=== PATIENT | female | born 1990 | race Caucasian/White ===

== ENCOUNTER 2017-05-02 21:07 | Emergency (ER) | payer MEDICAID ==
[~2017-05-02] VITALS: Ht 170.2 cm; Wt 59.0 kg
--- NOTE | 2017-05-02 22:06 | PHYS DOC ---
Past History Past Medical History: No Pertinent History Past Surgical History: No Surgical History Alcohol Use: None Drug Use: None Adult General HPI HPI Patient is a 27 year old F who presents with cough, shortness of breath, right side pain for the past couple days. Patient states that she's been having worsening cough and shortness of breath without fevers over the past couple days. Patient does admit to smoking. Patient states she has a right side pain does not related to eating and nothing increases or decreases the pain. Patient denies any dysuria. Patient denies any previous abdominal surgeries. Patient has no other complaints. Review of Systems Review of Systems GEN: Denies fevers, chills, sweats HEENT: Denies blurred vision, sore throat CV: Chest pain with coughing RESP: Cough with shortness of breath GI: right Abdominal pain NEURO: Denies confusion, dizziness MSK: Denies weakness, joint pain/swelling Allergies Allergies Allergies Coded Allergies Type Severity Reaction Last Updated Verified No Known Drug Allergies 04/16/16 No Physical Exam Physical Exam GEN.: No apparent distress. Alert and oriented. HEENT: Head is normocephalic, atraumatic NECK: Supple. LUNGS: Coarse breath sounds bilaterally. HEART: RRR, S1, S2 present. Peripheral pulses intact ABDOMEN: Soft, mild right-sided tenderness, no rebound tenderness, no abdominal distention, no right lower quadrant tenderness palpation. Positive bowel sounds. EXTREMITIES: Without any cyanosis. NEUROLOGIC: Normal speech, normal tone PSYCHIATRIC: Normal affect, normal mood. SKIN: No ulcerations Current Patient Data Vital Signs Laboratory Tests Test 05/02/17 22:41 05/02/17 22:56 Urine Collection Type Unknown Urine Color Yellow Urine Clarity Clear Urine pH 5.5 Urine Specific [place] >=1.030 Urine Protein Neg Urine Glucose (UA) Neg mg/dL Urine Ketones (Stick) Neg mg/dL Urine Blood Neg Urine Nitrite Neg Urine Bilirubin Neg Urine Urobilinogen Dipstick 0.2 mg/dL Urine Leukocyte Esterase Neg Urine RBC Occ /HPF Urine WBC Occ /HPF Urine Squamous Epithelial Cells Few /LPF Urine Bacteria Few /HPF Urine Mucus Slight /LPF White Blood Count 11.0 x10^3/uL Red Blood Count 4.14 x10^6/uL Hemoglobin 12.1 g/dL Hematocrit 35.0 % Mean Corpuscular Volume 85 fL Mean Corpuscular Hemoglobin 29 pg Mean Corpuscular Hemoglobin Concent 34 g/dL Red Cell Distribution Width 14.0 % Platelet Count 229 x10^3/uL Neutrophils (%) (Auto) 66 % Lymphocytes (%) (Auto) 23 % Monocytes (%) (Auto) 9 % Eosinophils (%) (Auto) 2 % Basophils (%) (Auto) 0 % Neutrophils # (Auto) 7.3 x10^3uL Lymphocytes # (Auto) 2.5 x10^3/uL Monocytes # (Auto) 1.0 x10^3/uL Eosinophils # (Auto) 0.2 x10^3/uL Basophils # (Auto) 0.0 x10^3/uL Sodium Level 140 mmol/L Potassium Level 3.1 mmol/L Chloride Level 104 mmol/L Carbon Dioxide Level 26 mmol/L Anion Gap 10 Blood Urea Nitrogen 10 mg/dL Creatinine 0.8 mg/dL Estimated GFR (Cockcroft-Gault) 86.7 BUN/Creatinine Ratio 13 Glucose Level 96 mg/dL Calcium Level 8.2 mg/dL Total Bilirubin 0.5 mg/dL Aspartate Amino Transf (AST/SGOT) 17 U/L Alanine Aminotransferase (ALT/SGPT) 18 U/L Alkaline Phosphatase 46 U/L Total Protein 6.9 g/dL Albumin 3.3 g/dL Albumin/Globulin Ratio 0.9 EKG EKG 2244: EKG shows normal sinus rhythm rate of 69 no STEMI[] Radiology/Procedures Radiology/Procedures Chest x-ray NAD[] Course & Med Decision Making Course & Med Decision Making Pertinent Labs and Imaging studies reviewed. (See chart for details) ED course: Patient was seen and examined emergency room CBC, CMP, chest x-ray, EKG were ordered 0005: Patient was reevaluated when she is feeling much better updated patient on lab results and x-ray. Explained the patient was sent home with some steroids and albuterol inhaler and recommended stop smoking. MDM: After reviewing the chart, CC/HPI/PMH, physical exam, [lab results], [ radiological results], I do not believe the patient's having a significant rust or infection warranting further workup and/or admission at this time. I do not believe the patient is having an inch abdominal emergency necessitating a CT scan at this time since her lab work is unremarkable and her abdominal pain is resolved. I believe patient is stable for discharge. We'll discharge patient home with steroids and albuterol inhaler. Additional verbal discharge instructions were provided to the patient and that if symptoms get worse or any new symptoms arise that are worrisome to the patient she is to return to the emergency room immediately [] Dragon Disclaimer Dragon Disclaimer This chart was dictated in whole or in part using Voice Recognition software in a busy, high-work load, and often noisy Emergency Department environment. It may contain unintended and wholly unrecognized errors or omissions. Departure Departure: Impression: Primary Impression: Bronchitis Disposition: 01 HOME, SELF-CARE Condition: STABLE Referrals: PCP,NO (PCP) Patient Instructions: Acute Bronchitis Additional Instructions: Please follow-up with your family physician in the next one to 2 days and return if symptoms increase and please stop smoking Scripts Albuterol Sulfate (VENTOLIN HFA INHALER) 18 Gm Hfa.aer.ad 1 PUFF IH PRN Q4HRS Y for FOR ASTHMA for 30 Days, #1 INHALER 0 Refills Prov: MARIE RIVERA DO 05/03/17 Prednisone (PREDNISONE) 50 Mg Tablet 50 MG PO DAILY for 5 Days, #5 TAB Prov: MARIE RIVERA DO 05/03/17 MARIE RIVERA DO May 02, 2017 22:06
[2017-05-02 23:20] LABS: BASO % 0 % (0-3); EOS # 0.2 x10^3/uL (0.0-0.7); EOS % 2 % (0-3); HEMOGLOBIN 12.1 g/dL (12.0-15.5); LYMPH # 2.5 x10^3/uL (1.0-4.8); LYMPH % 23 % (24-48); MEAN CORPUSCULAR HEMOGLOBIN 29 pg (25-35); MEAN CORPUSCULAR HGB CONC 34 g/dL (31-37); MEAN CORPUSCULAR VOLUME 85 fL (79-100); MONO % 9 % (0-9); NEUT # 7.3 x10^3uL (1.8-7.7); NEUT % 66 % (31-73); PLATELET COUNT 229 x10^3/uL (140-400); RED BLOOD COUNT 4.14 x10^6/uL (3.50-5.40)
[2017-05-02 23:25] LABS: BILIRUBIN,URINE NEG (NEG); CLARITY,URINE CLEAR; COLOR,URINE YELLOW; GLUCOSE,URINE NEG (NEG); NITRITE,URINE NEG (NEG); RBC,URINE OCC /HPF (0-2); UROBILINOGEN,URINE 0.2 mg/dL (0.2 mg/dL); WBC,URINE OCC /HPF (0-4)
[2017-05-02 23:26] LABS: BACTERIA,URINE FEW /HPF (0-FEW); SQUAMOUS EPITHELIAL CELL,UR FEW /LPF
[2017-05-02 23:35] LABS: ALBUMIN 3.3 g/dL (3.4-5.0); ALBUMIN/GLOBULIN RATIO 0.9 (1.0-1.7); CALCIUM 8.2 mg/dL (8.5-10.1); CREATININE 0.8 mg/dL (0.6-1.0); GFR 86.7; POTASSIUM 3.1 mmol/L (3.5-5.1); TOTAL BILIRUBIN 0.5 mg/dL (0.2-1.0); TOTAL PROTEIN 6.9 g/dL (6.4-8.2)
[2017-05-03 00:06] VITALS: BP 107/57
[2017-05-03] MEDS ORDERED: PRED50TA PO (00:08)
[2017-05-03] MEDS ORDERED: ALBU18HF IH (00:08)
--- NOTE | 2017-05-03 07:47 | RAD ---
Indication shortness of breath. Chest discomfort. Productive cough. Frontal and lateral views of the chest were obtained. Comparison is made to an examination almost 10 years earlier. The heart, pulmonary vessels and mediastinum appear normal. The lungs are clear. IMPRESSION: Normal study
--- NOTE | 2017-05-03 10:02 | EKG ---
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
== END 2017-05-03 00:15 | disposition home or self-care (01) ==
LOC: ER 21:07
DX: J40 Bronchitis, not specified as acute or chronic (principal); R10.9 Unspecified abdominal pain
CPT/HCPCS: 36415; 71020; 80053; 81001; 85025; 93005; 99285-25

== ENCOUNTER 2017-07-27 12:12 | Emergency (ER) | payer MEDICAID, OTHER ==
[~2017-07-27] VITALS: Ht 170.2 cm; Wt 61.2 kg
[~2017-07-27 12:12] MED LIST: ALBU18HF IH; PRED50TA PO
[2017-07-27] MEDS ORDERED: FLUT9.9S NS (14:16)
--- NOTE | 2017-07-27 14:16 | PHYS DOC ---
Past History Past Medical History: No Pertinent History Past Surgical History: No Surgical History Alcohol Use: None Drug Use: None Adult General Chief Complaint Chief Complaint: SORE THROAT HPI HPI Patient is a 27 year old F who presents with nasal congestion and sore throat over the past 3-4 days. Lidia denies shortness of breath. She does have occasional cough. She doesn't symptoms are worse with activity. She also is currently . She has no other associated symptoms. She has no other exacerbating or alleviating factors. Review of Systems Review of Systems Constitutional: Denies fever or chills [] Eyes: Denies change in visual acuity, redness, or eye pain [] HENT: Negative except history of present illness Respiratory: Denies cough or shortness of breath [] Cardiovascular: No additional information not addressed in HPI [] GI: Denies abdominal pain, nausea, vomiting, bloody stools or diarrhea [] : Denies dysuria or hematuria [] Musculoskeletal: Denies back pain or joint pain [] Integument: Denies rash or skin lesions [] Neurologic: Denies headache, focal weakness or sensory changes [] Endocrine: Denies polyuria or polydipsia [] All other systems were reviewed and found to be within normal limits, except as documented in this note. Family History Family History No pertinent family medical history was reported Current Medications Current Medications Current medications were reviewed Allergies Allergies Allergies Coded Allergies Type Severity Reaction Last Updated Verified No Known Drug Allergies 04/16/16 No Physical Exam Physical Exam Constitutional: Well developed, well nourished, no acute distress, non-toxic appearance. [] HENT: Normocephalic, atraumatic mild bilateral nasal mucosa erythema and edema , oral pharyngeal erythema with mild tonsillar enlargement Eyes: EOMI, conjunctiva normal, no discharge. [] Neck: Normal range of motion, no tenderness, supple, no stridor. [] Cardiovascular:Heart rate regular rhythm, Lungs & Thorax: Bilateral breath sounds clear to auscultation [] Abdomen: Bowel sounds normal, soft, gravid Skin: Warm, dry, no erythema, no rash. [] Extremities: No tenderness, no cyanosis, no clubbing, ROM intact, no edema. [] Neurologic: Alert and oriented X 3, normal motor function, normal sensory function, no focal deficits noted. [] Psychologic: Affect normal, judgement normal, mood normal. [] Current Patient Data Vital Signs Vital Signs Date Time Temp Pulse Resp B/P (MAP) Pulse Ox O2 Delivery O2 Flow Rate FiO2 07/27/17 12:33 98.3 95 16 99 Room Air Lab Results Laboratory Tests Test 07/27/17 12:40 Group A Streptococcus Rapid Negative (NEGATIVE) EKG EKG [] Radiology/Procedures Radiology/Procedures [] Course & Med Decision Making Course & Med Decision Making Pertinent Labs and Imaging studies reviewed. (See chart for details) [] Dragon Disclaimer Dragon Disclaimer This electronic medical record was generated, in whole or in part, using a voice recognition dictation system. Departure Departure: Impression: Primary Impression: Upper respiratory infection Disposition: HOME, SELF-CARE Condition: STABLE Referrals: PCP,ROMA (PCP) Patient Instructions: Upper Respiratory Infection, Adult Additional Instructions: Lidia was seen in the emergency department for nasal congestion and sore throat. No emergency medical condition was found on history or physical exam. Her symptoms are most consistent with a viral upper respiratory infection. She is encouraged use nasal saline rinses regularly and was also given a prescription for nasal steroid spray. She is advised the nasal steroids are class C in . She is advised follow-up with her primary care doctor in the next 3-5 days for further management. Scripts Fluticasone Propionate (Flonase Allergy Relief) 9.9 Ml [place].susp 1 SPRAYS NS BID for 7 Days, BOTTLE Prov: MANISH RIVERA MD 07/27/17 Problem Qualifiers Primary Impression: Upper respiratory infection URI type: unspecified URI Qualified Codes: J06.9 - Acute upper respiratory infection, unspecified MANISH RIVERA MD Jul 27, 2017 14:16
[2017-07-27 14:19] VITALS: BP 105/62
== END 2017-07-27 14:21 | disposition home or self-care (01) ==
LOC: ER 12:12
DX: O99.511 Diseases of the respiratory system complicating pregnancy, first trimester (principal); J06.9 Acute upper respiratory infection, unspecified
CPT/HCPCS: 87070; 87880; 99283

== ENCOUNTER 2018-01-29 14:48 | Emergency (ER) | payer MEDICARE, OTHER ==
[~2018-01-29] VITALS: Ht 170.2 cm; Wt 72.8 kg
[~2018-01-29 14:48] MED LIST changes: +FLUT9.9S NS
[2018-01-29] MEDS ORDERED: DEXAMETHASONE SOD PHOS 10 MG/ML VIAL IM ONE (16:30)
[2018-01-29] MEDS ORDERED: IBUPROFEN 600 MG TABLET. PO ONE (16:30)
--- NOTE | 2018-01-29 16:47 | PHYS DOC ---
Past History Past Medical History: Anemia Past Surgical History: No Surgical History Alcohol Use: Occasionally Drug Use: None Adult General Chief Complaint Chief Complaint: SORE THROAT HPI HPI Patient is a 27-year-old female who presents for evaluation of sore throat, pain with swallowing, generalized body aches which started two days ago. She denies any sick contacts. She has not noticed a fever but her temperature upon arrival is 99.9. She is alert and oriented 4, calm, and appears to be no distress. She denies headache, neck pain or neck stiffness, dysuria, back or flank pain, abdominal pain, chest pain or shortness of breath, rash, or insect/ tick bite. Review of Systems Review of Systems Constitutional: Denies fever or chills [] Eyes: Denies change in visual acuity, redness, or eye pain [] HENT: Denies nasal congestion +sore throat Respiratory: Denies cough or shortness of breath [] Cardiovascular: No additional information not addressed in HPI [] GI: Denies abdominal pain, nausea, vomiting, bloody stools or diarrhea [] : Denies dysuria or hematuria [] Musculoskeletal: Denies back pain or joint pain [] +body aches Integument: Denies rash or skin lesions [] Neurologic: Denies headache, focal weakness or sensory changes [] Endocrine: Denies polyuria or polydipsia [] All other systems were reviewed and found to be within normal limits, except as documented in this note. Current Medications Current Medications Current Medications Medications (Trade) Dose Ordered Sig/Katheryn Start Time Stop Time Status Last Admin Dose Admin Dexamethasone Sodium Phosphate (Decadron) 10 mg 1X ONCE 01/29/18 16:30 01/29/18 16:31 DC 01/29/18 16:31 10 MG Ibuprofen (Motrin) 600 mg 1X ONCE 01/29/18 16:30 01/29/18 16:31 DC 01/29/18 16:30 600 MG Allergies Allergies Allergies Coded Allergies Type Severity Reaction Last Updated Verified No Known Drug Allergies 04/16/16 No Physical Exam Physical Exam Constitutional: Well developed, well nourished, no acute distress, non-toxic appearance. [] HENT: Normocephalic, atraumatic, bilateral external ears normal, oropharynx moist, nose normal. [] moderate/severe tonsillar b/l swelling, no abscess seen, mild exudates present, +anterior cervical lymphadenopathy Eyes: PERRLA, EOMI, conjunctiva normal, no discharge. [] Neck: Normal range of motion, no tenderness, supple, no stridor. [] Cardiovascular:Heart rate regular rhythm, no murmur [] Lungs & Thorax: Bilateral breath sounds clear to auscultation [] Abdomen: Bowel sounds normal, soft, no tenderness, no masses, no pulsatile masses. [] Skin: Warm, dry, no erythema, no rash. [] Back: No tenderness, no CVA tenderness. [] Extremities: No tenderness, no cyanosis, no clubbing, ROM intact, no edema. [] Neurologic: Alert and oriented X 3, normal motor function, normal sensory function, no focal deficits noted. [] Psychologic: Affect normal, judgement normal, mood normal. [] Current Patient Data Vital Signs Vital Signs Date Time Temp Pulse Resp B/P (MAP) Pulse Ox O2 Delivery O2 Flow Rate FiO2 01/29/18 14:48 99.9 96 18 98 Room Air Lab Results Laboratory Tests Test 01/29/18 15:15 Group A Streptococcus Rapid Negative (NEGATIVE) EKG EKG [] Radiology/Procedures Radiology/Procedures [] Course & Med Decision Making Course & Med Decision Making Pertinent Labs and Imaging studies reviewed. (See chart for details) Laboratory Tests Test 01/29/18 15:15 01/29/18 16:35 Group A Streptococcus Rapid Negative Heterophil Agglutinins Negative Current Medications Medications (Trade) Dose Ordered Sig/Katheryn Route PRN Reason Start Time Stop Time Status Last Admin Dose Admin Dexamethasone Sodium Phosphate (Decadron) 10 mg 1X ONCE IM 01/29/18 16:30 01/29/18 16:31 DC 01/29/18 16:31 Ibuprofen (Motrin) 600 mg 1X ONCE PO 01/29/18 16:30 01/29/18 16:31 DC 01/29/18 16:30 @1715 - patient updated on lab results which show a negative strep and mono. The patient has significant swelling will go home with a prescription for steroids and pain medication. She is requesting antibiotics although I told the patient this is likely viral. She stable for discharge at this time. Dragon Disclaimer Dragon Disclaimer This electronic medical record was generated, in whole or in part, using a voice recognition dictation system. Departure Departure: Impression: Primary Impression: Pharyngitis Additional Impression: Sore throat Disposition: HOME, SELF-CARE Condition: STABLE Referrals: PCPROMA (PCP) Patient Instructions: Viral and Bacterial Pharyngitis Additional Instructions: Take the medication as prescribed. Follow-up with your doctor in the next 1-2 days. Return to the ER for new or worsening symptoms. Take Tylenol and ibuprofen for pain and fever relief. Scripts Tramadol Hcl (ULTRAM) 50 Mg Tablet 50 MG PO PRN Q6HRS PRN for PAIN, #15 TAB Prov: NOBLE CONNER DO 01/29/18 Prednisone (PREDNISONE) 20 Mg Tablet 2 TAB PO DAILY for 5 Days, #10 TAB Prov: NOBLE CONNER DO 01/29/18 Problem Qualifiers NOBLE CONNER DO Jan 29, 2018 16:47
[2018-01-29 17:01] LABS: MONONUCLEOSIS PATIENT NEGATIVE (NEGATIVE)
[2018-01-29] MEDS ORDERED: PRED20TA PO (17:19)
[2018-01-29] MEDS ORDERED: TRAM-48 PO (17:20)
[2018-01-29 17:35] VITALS: BP 115/66
== END 2018-01-29 17:38 | disposition home or self-care (01) ==
LOC: ER 14:48
DX: J02.9 Acute pharyngitis, unspecified (principal); Z86.2 Personal history of diseases of the blood and blood-forming organs and certain disorders involving the immune mechanism
CPT/HCPCS: 86308; 87880; 96372; 99284; J1100; 87070

== ENCOUNTER 2018-04-05 15:23 | Emergency (ER) | payer SELFPAY ==
[~2018-04-05] VITALS: Ht 170.2 cm; Wt 67.7 kg
[~2018-04-05 15:23] MED LIST changes: +PRED20TA PO; +TRAM-48 PO
[2018-04-05 16:10] LABS: BILIRUBIN,URINE NEG (NEG); CLARITY,URINE CLOUDY; COLOR,URINE YELLOW; GLUCOSE,URINE NEG (NEG)
[2018-04-05 16:11] LABS: BACTERIA,URINE MANY /HPF (0-FEW); NITRITE,URINE POS (NEG); SQUAMOUS EPITHELIAL CELL,UR OCC /LPF; UROBILINOGEN,URINE 0.2 mg/dL (0.2 mg/dL); WBC,URINE >40 /HPF (0-4)
[2018-04-05] MEDS ORDERED: cefTRIAXone IM 1 GM VIAL IM ONE (16:40)
[2018-04-05 16:55] VITALS: BP 99/61
[2018-04-05] MEDS ORDERED: CIPR250T30 PO (17:02)
[2018-04-05] MEDS ORDERED: ERYT1OIN6 RIGHTEYE (17:02)
[2018-04-05] MEDS ORDERED: PHEN100T82 PO (17:02)
--- NOTE | 2018-04-05 17:03 | PHYS DOC ---
Past History Past Medical History: No Pertinent History Past Surgical History: Tubal ligation Alcohol Use: Occasionally Drug Use: None Adult General Chief Complaint Chief Complaint: PAIN ON URINATION , EYE PROBLEM HPI HPI Patient is a 27 year old female who presents with eye problem and pain in urination. Patient complaining of right lower eyelid lesion for almost one years that getting larger and painful for the last couple days without change of vision, fever and chills, nausea and vomiting or pain. Patient denies wearing contacts or glasses. Patient also complaining of painful urination for the last couple weeks with urinary frequency. Patient denies abdominal pain, fever and chills, , nausea and vomiting, diarrhea and constipation. Patient states she had history of UTI previously. Review of Systems Review of Systems Constitutional: Denies fever or chills [] Eyes: Denies change in visual acuity, redness, or eye pain [] HENT: Denies nasal congestion or sore throat [] Respiratory: Denies cough or shortness of breath [] Cardiovascular: No additional information not addressed in HPI [] GI: Denies abdominal pain, nausea, vomiting, bloody stools or diarrhea [] : Reports dysuria and urinary frequency Musculoskeletal: Denies back pain or joint pain [] Integument: Denies rash or skin lesions [] Neurologic: Denies headache, focal weakness or sensory changes [] Endocrine: Denies polyuria or polydipsia [] All other systems were reviewed and found to be within normal limits, except as documented in this note. Current Medications Current Medications Current Medications Medications (Trade) Dose Ordered Sig/Katheryn Start Time Stop Time Status Last Admin Dose Admin Ceftriaxone Sodium (Rocephin Im) 1 gm 1X ONCE 04/05/18 16:40 04/05/18 16:41 DC 04/05/18 16:30 1 GM Allergies Allergies Allergies Coded Allergies Type Severity Reaction Last Updated Verified No Known Drug Allergies 04/16/16 No Physical Exam Physical Exam Constitutional: Well developed, well nourished, mild distress, non-toxic appearance. [] HENT: Normocephalic, atraumatic Eyes: PERRLA, EOMI, conjunctiva normal, large. In medial side of lower IUD without drainage of pus ] Neck: Normal range of motion, no tenderness, supple, no stridor. [] Cardiovascular:Heart rate regular rhythm, no murmur [] Lungs & Thorax: Bilateral breath sounds clear to auscultation [] Abdomen: Bowel sounds normal, soft, no tenderness, no masses, no pulsatile masses. [] Skin: Warm, dry, no erythema, no rash. [] Back: No tenderness, no CVA tenderness. [] Extremities: No tenderness, no cyanosis, no clubbing, ROM intact, no edema. [] Neurologic: Alert and oriented X 3, normal motor function, normal sensory function, no focal deficits noted. [] Psychologic: Affect normal, judgement normal, mood normal. [] Current Patient Data Vital Signs Vital Signs Date Time Temp Pulse Resp B/P (MAP) Pulse Ox O2 Delivery O2 Flow Rate FiO2 04/05/18 15:26 98.4 84 16 100 Room Air Lab Results Laboratory Tests Test 04/05/18 15:11 04/05/18 15:31 POC Urine HCG, Qualitative hcg negative (Negative) Urine Collection Type Clean catch Urine Color Yellow Urine Clarity Cloudy Urine pH 5.5 Urine Specific [place] 1.020 Urine Protein 100 mg/dl (NEG-TRACE) Urine Glucose (UA) Neg mg/dL (NEG) Urine Ketones (Stick) Neg mg/dL (NEG) Urine Blood Small (NEG) Urine Nitrite Pos (NEG) Urine Bilirubin Neg (NEG) Urine Urobilinogen Dipstick 0.2 mg/dL (0.2 mg/dL) Urine Leukocyte Esterase Mod (NEG) Urine RBC 1-2 /HPF (0-2) Urine WBC >40 /HPF (0-4) Urine Squamous Epithelial Cells Occ /LPF Urine Bacteria Many /HPF (0-FEW) Urine Mucus Mod /LPF EKG EKG [] Radiology/Procedures Radiology/Procedures [] Course & Med Decision Making Course & Med Decision Making Pertinent Labs reviewed. (See chart for details) discharge: I've spoken with the patient and/or caregivers. I've explained the patient's condition, diagnosis and treatment plan based on information available to me at this time. I've answered the patient's and/or caregivers questions and addressed any concerns. The patient and/or caregivers have a good understanding the patient's diagnosis, condition and treatment plan as can be expected at this point. Vital signs have been stabilized. The patient's condition is stable for discharge from the emergency department. The patient will pursue further outpatient evaluation with her primary care provider or other designated consulting physician as outlined in the discharge instructions. Patient and/or caregivers are agreeable to this plan of care and follow-up instructions have been explained in detail. The patient and/or caregivers have received these instructions in written format and expressed understanding of these discharge instructions. The patient and her caregivers are aware that if any significant change in condition or worsening of symptoms should prompt him to immediately return to this of the closest emergency department. If an emergent department is not readily available I would encourage him to call 911. [place] Disclaimer Dragon Disclaimer This electronic medical record was generated, in whole or in part, using a voice recognition dictation system. 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 1 TIFFANIE RIGHTEYE QID for 7 Days, MISC Prov: KRYSTIAN LEMUS MD 04/05/18 Problem Qualifiers KRYSTIAN LEMUS MD Apr 05, 2018 17:03
== END 2018-04-05 17:12 | disposition home or self-care (01) ==
LOC: ER 15:23
DX: N39.0 Urinary tract infection, site not specified (principal); H00.012 Hordeolum externum right lower eyelid
CPT/HCPCS: 81001; 81025; 87086; 96372; 99284; J0696

== ENCOUNTER 2018-05-31 09:52 | Emergency (ER) | payer SELFPAY ==
[~2018-05-31] VITALS: Ht 170.2 cm; Wt 59.0 kg
[~2018-05-31 09:52] MED LIST changes: +CIPR250T30 PO; +ERYT1OIN6 RIGHTEYE; +PHEN100T82 PO
[2018-05-31 10:09] VITALS: BP 104/66
--- NOTE | 2018-05-31 10:16 | PHYS DOC ---
Past History Past Medical History: No Pertinent History Past Surgical History: Tubal ligation Alcohol Use: Occasionally Drug Use: None Adult General Chief Complaint Chief Complaint: SORE THROAT HPI HPI Patient is a 28-year-old female who presents with complaint of sore throat for about a week now. Patient states throat is getting more sore over time. She denies fever. She denies any chest pain, shortness breath, nausea or vomiting. She does admit to nasal congestion and clear nasal drainage. Review of Systems Review of Systems Constitutional: Denies fever or chills [] HENT: Complains of congestion and sore throat [] Respiratory: Denies cough or shortness of breath [] Cardiovascular: No additional information not addressed in HPI [] GI: Denies abdominal pain, nausea, vomiting or diarrhea [] Allergies Allergies Allergies Coded Allergies Type Severity Reaction Last Updated Verified No Known Drug Allergies 05/31/18 No Physical Exam Physical Exam Constitutional: Well developed, well nourished, no acute distress, non-toxic appearance. [] HENT: Normocephalic, atraumatic, bilateral external ears normal, oropharynx moist, with pharyngeal erythema, no exudates, nose normal. [] Neck: Normal range of motion, no tenderness, supple, no stridor. [] Cardiovascular:Heart rate regular rhythm, no murmur [] Lungs & Thorax: Bilateral breath sounds clear to auscultation [] Current Patient Data Vital Signs Vital Signs Date Time Temp Pulse Resp B/P (MAP) Pulse Ox O2 Delivery O2 Flow Rate FiO2 05/31/18 10:09 97.7 56 18 100 EKG EKG [] Radiology/Procedures Radiology/Procedures [] Course & Med Decision Making Course & Med Decision Making Pertinent Labs and Imaging studies reviewed. (See chart for details) [] Dragon Disclaimer Dragon Disclaimer This electronic medical record was generated, in whole or in part, using a voice recognition dictation system. Departure Departure: Impression: Primary Impression: Pharyngitis Disposition: 01 HOME, SELF-CARE Condition: STABLE Referrals: PCP,NO (PCP) Patient Instructions: Viral Pharyngitis Problem Qualifiers Primary Impression: Pharyngitis Pharyngitis/tonsillitis etiology: unspecified etiology Qualified Codes: J02.9 - Acute pharyngitis, unspecified ONEIL [place] Jr. DO May 31, 2018 10:16
== END 2018-05-31 10:40 | disposition home or self-care (01) ==
LOC: ER 09:52
DX: J02.9 Acute pharyngitis, unspecified (principal)
CPT/HCPCS: 87070; 87880; 99283

== ENCOUNTER 2018-06-23 15:34 | Emergency (ER) | payer SELFPAY ==
[~2018-06-23] VITALS: Ht 170.2 cm; Wt 60.0 kg
[2018-06-23] MEDS ORDERED: IV NORMAL SALINE 1,000ML 1,000 ML IV SCH (15:58)
[2018-06-23] MEDS ORDERED: KETOROLAC 30 MG/ML VIAL. IV ONE (16:15)
[2018-06-23 16:27] LABS: BASO # 0.1 x10^3/uL (0.0-0.2); BASO % 1 % (0-3); EOS # 0.1 x10^3/uL (0.0-0.7); EOS % 1 % (0-3); HEMATOCRIT 42.8 % (36.0-47.0); HEMOGLOBIN 14.3 g/dL (12.0-15.5); LYMPH # 2.1 x10^3/uL (1.0-4.8); LYMPH % 21 % (24-48); MEAN CORPUSCULAR HEMOGLOBIN 29 pg (25-35); MEAN CORPUSCULAR HGB CONC 34 g/dL (31-37); MEAN CORPUSCULAR VOLUME 86 fL (79-100); MONO # 0.9 x10^3/uL (0.0-1.1); MONO % 9 % (0-9); NEUT # 6.9 x10^3uL (1.8-7.7); NEUT % 68 % (31-73); PLATELET COUNT 239 x10^3/uL (140-400); RED BLOOD COUNT 4.97 x10^6/uL (3.50-5.40); RED CELL DISTRIBUTION WIDTH 14.9 % (11.5-14.5)
[2018-06-23 16:39] LABS: PREG TEST PT QUAL NEGATIVE (NEG)
[2018-06-23 16:42] LABS: ALBUMIN 3.7 g/dL (3.4-5.0); ALBUMIN/GLOBULIN RATIO 0.9 (1.0-1.7); CALCIUM 8.8 mg/dL (8.5-10.1); CREATININE 0.8 mg/dL (0.6-1.0); POTASSIUM 3.7 mmol/L (3.5-5.1); TOTAL BILIRUBIN 0.6 mg/dL (0.2-1.0); TOTAL PROTEIN 7.8 g/dL (6.4-8.2)
--- NOTE | 2018-06-23 17:14 | RAD ---
Abdominal and Pelvis CT, Without Contrast: History: Sudden onset of abdominal pain Comparison: None. Procedure: Axial images are obtained of the abdomen and pelvis, without IV or oral contrast. CT Abdomen without Contrast: Findings: Evaluation of solid organs is limited without contrast. Evaluation of stomach and bowel is limited without oral contrast. There is a small amount of dense fluid around the liver and a trace amount dense fluid around the spleen and along the paracolic gutters. Liver: Normal. Spleen: Normal. Pancreas: Normal. Adrenal Glands: Normal. Kidneys: Normal. There is no free air or free fluid. There is no lymphadenopathy. Impression: Please see CT Pelvis without Contrast. End Impression. CT Pelvis without Contrast: Findings: The urinary bladder appears normal. There is a hyperattenuating hematoma between the liver and uterus that measures 6.0 x 2.8 x 9.0 cm. There is additional dense fluid posteriorly in the pelvis as well. There is a mixed density round lesion in the left adnexa likely related to the ovary that measures 3.0 cm in diameter. The appendix is not well seen but appears normal. There is no free fluid. There is no lymphadenopathy. There is no pericolonic inflammation identified. Impression: Mild hemoperitoneum in the abdomen and moderate hemoperitoneum in the pelvis which appears acute. There is a mixed density lesion in the left adnexa suggesting an ovarian lesion and a hemorrhagic ovarian masses is possible. The patient has a history of tubes tied 4 months ago and must be excluded in order to exclude a ruptured ectopic . Recommend correlation with serial vital signs and hemoglobin. End impression PQRS Compliance Statement: One or more of the following individualized dose reduction techniques were utilized for this examination: 1. Automated exposure control 2. Adjustment of the mA and/or kV according to patient size 3. Use of iterative reconstruction technique Electronically signed by: Dom Joya III, MD (06/23/2018 5:10 PM) [facility]
[2018-06-23 17:35] LABS: CLARITY,URINE CLEAR; COLOR,URINE YELLOW
[2018-06-23 17:36] LABS: BACTERIA,URINE FEW /HPF (0-FEW); BILIRUBIN,URINE NEG (NEG); GLUCOSE,URINE NEG (NEG); NITRITE,URINE NEG (NEG); RBC,URINE 0 /HPF (0-2); SQUAMOUS EPITHELIAL CELL,UR OCC /LPF; UROBILINOGEN,URINE 0.2 mg/dL (0.2 mg/dL)
--- NOTE | 2018-06-23 17:48 | PHYS DOC ---
Past History Past Medical History: No Pertinent History Past Surgical History: Tubal ligation Smoking: Cigarettes Alcohol Use: Occasionally Drug Use: None Adult General Chief Complaint Chief Complaint: ABDOMINAL PAIN HPI HPI Patient is a 28 year old female A1 with LMP of 1 month ago and history of tubal ligation about 4 months ago who presents with complaining of sharp lower abdominal pain as a sudden pain that started around 10 AM with radiation to right side of abdomen and right upper quadrant and right chest. Patient states she has hard time to complete because of the pain. Patient denies nausea, vomiting, diarrhea and constipation, urinary symptoms, vaginal bleeding, history of the same pain. Review of Systems Review of Systems Constitutional: Denies fever or chills [] Eyes: Denies change in visual acuity, redness, or eye pain [] HENT: Denies nasal congestion or sore throat [] Respiratory: Denies cough or shortness of breath [] Cardiovascular: No additional information not addressed in HPI [] GI: Reports abdominal pain, denies nausea, vomiting, bloody stools or diarrhea [ ] : Denies dysuria or hematuria [] Musculoskeletal: Denies back pain or joint pain [] Integument: Denies rash or skin lesions [] Neurologic: Denies headache, focal weakness or sensory changes [] Endocrine: Denies polyuria or polydipsia [] All other systems were reviewed and found to be within normal limits, except as documented in this note. Current Medications Current Medications Current Medications Medications (Trade) Dose Ordered Sig/Katheryn Start Time Stop Time Status Last Admin Dose Admin Ketorolac Tromethamine (Toradol 30mg Vial) 30 mg 1X ONCE 06/23/18 16:15 06/23/18 16:16 DC 06/23/18 16:25 30 MG Sodium Chloride 1,000 ml @ 1,000 mls/hr Q1H 06/23/18 15:58 06/23/18 16:57 DC 06/23/18 16:25 1,000 MLS/HR Allergies Allergies Allergies Coded Allergies Type Severity Reaction Last Updated Verified No Known Drug Allergies 05/31/18 No Physical Exam Physical Exam Constitutional: Well developed, well nourished, mild distress, non-toxic appearance. [] HENT: Normocephalic, atraumatic, oropharynx dry, no oral exudates, nose normal. [] Eyes: PERRLA, EOMI, conjunctiva normal, no discharge. [] Neck: Normal range of motion, no tenderness, supple, no stridor. [] Cardiovascular: Tachycardia, no murmur [] Lungs & Thorax: Bilateral breath sounds clear to auscultation [] Abdomen: Left lower quadrant guarding and tenderness Bowel sounds normal, soft, no masses, no pulsatile masses, vaginal exam and present of consumer advocate showed moderate vaginal discharge with left adnexal tenderness and fullness. [] Skin: Warm, dry, no erythema, no rash. [] Back: No tenderness, no CVA tenderness. [] Extremities: No tenderness, no cyanosis, no clubbing, ROM intact, no edema. [] Neurologic: Alert and oriented X 3, normal motor function, normal sensory function, no focal deficits noted. [] Psychologic: Affect normal, judgement normal, mood normal. [] Current Patient Data Vital Signs Vital Signs Date Time Temp Pulse Resp B/P (MAP) Pulse Ox O2 Delivery O2 Flow Rate FiO2 06/23/18 15:47 98.1 103 18 100 Room Air Lab Results Laboratory Tests Test 06/23/18 16:13 06/23/18 17:08 White Blood Count 10.0 x10^3/uL (4.0-11.0) Red Blood Count 4.97 x10^6/uL (3.50-5.40) Hemoglobin 14.3 g/dL (12.0-15.5) Hematocrit 42.8 % (36.0-47.0) Mean Corpuscular Volume 86 fL (79-100) Mean Corpuscular Hemoglobin 29 pg (25-35) Mean Corpuscular Hemoglobin Concent 34 g/dL (31-37) Red Cell Distribution Width 14.9 % (11.5-14.5) H Platelet Count 239 x10^3/uL (140-400) Neutrophils (%) (Auto) 68 % (31-73) Lymphocytes (%) (Auto) 21 % (24-48) L Monocytes (%) (Auto) 9 % (0-9) Eosinophils (%) (Auto) 1 % (0-3) Basophils (%) (Auto) 1 % (0-3) Neutrophils # (Auto) 6.9 x10^3uL (1.8-7.7) Lymphocytes # (Auto) 2.1 x10^3/uL (1.0-4.8) Monocytes # (Auto) 0.9 x10^3/uL (0.0-1.1) Eosinophils # (Auto) 0.1 x10^3/uL (0.0-0.7) Basophils # (Auto) 0.1 x10^3/uL (0.0-0.2) Sodium Level 143 mmol/L (136-145) Potassium Level 3.7 mmol/L (3.5-5.1) Chloride Level 104 mmol/L (98-107) Carbon Dioxide Level 24 mmol/L (21-32) Anion Gap 15 (6-14) H Blood Urea Nitrogen 10 mg/dL (7-20) Creatinine 0.8 mg/dL (0.6-1.0) Estimated GFR (Cockcroft-Gault) 86.0 BUN/Creatinine Ratio 13 (6-20) Glucose Level 69 mg/dL (70-99) L Calcium Level 8.8 mg/dL (8.5-10.1) Total Bilirubin 0.6 mg/dL (0.2-1.0) Aspartate Amino Transferase (AST) 22 U/L (15-37) Alanine Aminotransferase (ALT) 21 U/L (14-59) Alkaline Phosphatase 50 U/L (46-116) Total Protein 7.8 g/dL (6.4-8.2) Albumin 3.7 g/dL (3.4-5.0) Albumin/Globulin Ratio 0.9 (1.0-1.7) L Lipase 192 U/L (73-393) Serum Test, Qualitative Negative (NEG) Urine Collection Type Unknown Urine Color Yellow Urine Clarity Clear Urine pH 7.0 Urine Specific [place] 1.020 Urine Protein Neg (NEG-TRACE) Urine Glucose (UA) Neg mg/dL (NEG) Urine Ketones (Stick) Trace mg/dL (NEG) Urine Blood Neg (NEG) Urine Nitrite Neg (NEG) Urine Bilirubin Neg (NEG) Urine Urobilinogen Dipstick 0.2 mg/dL (0.2 mg/dL) Urine Leukocyte Esterase Neg (NEG) Urine RBC 0 /HPF (0-2) Urine WBC 1-4 /HPF (0-4) Urine Squamous Epithelial Cells Occ /LPF Urine Bacteria Few /HPF (0-FEW) Urine Mucus Mod /LPF EKG EKG [] Radiology/Procedures Radiology/Procedures [address] [address] IMAGING REPORT Signed PATIENT: SEFERINO ROSARIO ACCOUNT: [id number] : 1990 LOCATION: ER AGE: 28 SEX: F EXAM STATUS: PRE ER ORD. PHYSICIAN: KRYSTIAN LEMUS MD REASON: Sudden onset of abdominal pain. Hx: Tubes tied 4 months ago PROCEDURE: CT ABDOMEN PELVIS WO CONTRAST Abdominal and Pelvis CT, Without Contrast: History: Sudden onset of abdominal pain Comparison: None. Procedure: Axial images are obtained of the abdomen and pelvis, without IV or oral contrast. CT Abdomen without Contrast: Findings: Evaluation of solid organs is limited without contrast. Evaluation of stomach and bowel is limited without oral contrast. There is a small amount of dense fluid around the liver and a trace amount dense fluid around the spleen and along the paracolic gutters. Liver: Normal. Spleen: Normal. Pancreas: Normal. Adrenal Glands: Normal. Kidneys: Normal. There is no free air or free fluid. There is no lymphadenopathy. Impression: Please see CT Pelvis without Contrast. End Impression. CT Pelvis without Contrast: Findings: The urinary bladder appears normal. There is a hyperattenuating hematoma between the liver and uterus that measures 6.0 x 2.8 x 9.0 cm. There is additional dense fluid posteriorly in the pelvis as well. There is a mixed density round lesion in the left adnexa likely related to the ovary that measures 3.0 cm in diameter. The appendix is not well seen but appears normal. There is no free fluid. There is no lymphadenopathy. There is no pericolonic inflammation identified. Impression: Mild hemoperitoneum in the abdomen and moderate hemoperitoneum in the pelvis which appears acute. There is a mixed density lesion in the left adnexa suggesting an ovarian lesion and a hemorrhagic ovarian masses is possible. The patient has a history of tubes tied 4 months ago and must be excluded in order to exclude a ruptured ectopic . Recommend correlation with serial vital signs and hemoglobin. End impression PQRS Compliance Statement: One or more of the following individualized dose reduction techniques were utilized for this examination: 1. Automated exposure control 2. Adjustment of the mA and/or kV according to patient size 3. Use of iterative reconstruction technique Electronically signed by: Shelton Gómez III, MD (06/23/2018 5:10 PM) [facility] DICTATED AND SIGNED BY: SHELTON GÓMEZ III, MD DATE: 06/23/18 170 CC: KRYSTIAN LEMUS MD; PCP,NO ~ See Dr. Lemus report for details. Impression: 1. Abdomen Pain 2. Hemoperitoneum- Lt. Adnexal Ovarian Lesion/Hemorrhagic Ovarian masses? 3. Hx. Tubal Ligation 4 mo. ago Course & Med Decision Making Course & Med Decision Making Pertinent Labs and Imaging studies reviewed. (See chart for details) Evaluation of patient in ER showed 28-year-old female patient with sudden onset of abdominal pain since this morning with radiation to right chest and shortness of breath because of the pain. Patient had tenderness of left adnexal area and treated with IV fluid and pain medication and felt better. CBC and CMP was unremarkable. UA is pending. CT of abdomen and pelvis showed moderate amount of fluid in abdomen with concern for hemorrhagic ovarian cyst. Ultrasound is pending. Patient care transferred to Dr. Vazquez at 1800 with concern for possible hospitalization for hemoperitoneum. Discussed presentation, testing and tx plan with Dr. Qiu- credit and collection manager for Dr. Brock. Pt. developed increased pain after initial improvement. Dr. Qiu requested a repeat HGB. Pt. given Morphine pain and Zofran for nausea. Results of US and CT reviewed and repeat Hgb. Dr. Qiu Advised to have pt. transfer to [facility]- Transfer team also aware. Pt. to go to ED- pending surgery and /or room placement. Plan to go directly to Surgery after arrival in ED. Dragon Disclaimer Dragon Disclaimer This electronic medical record was generated, in whole or in part, using a voice recognition dictation system. Departure Departure: Impression: Primary Impression: Abdominal pain Referrals: PCP,NO (PCP) KRYSTIAN LEMUS MD Jun 23, 2018 17:48 STEPHEN VAZQUEZ MD Jun 23, 2018 18:16
[2018-06-23] MEDS ORDERED: MORPHINE SULFATE 10 MG/ML SYRINGE. SQ ONE (19:00)
[2018-06-23 19:20] LABS: HEMATOCRIT 39.8 % (36.0-47.0); HEMOGLOBIN 13.4 g/dL (12.0-15.5); RED BLOOD COUNT 4.61 x10^6/uL (3.50-5.40); RED CELL DISTRIBUTION WIDTH 15.1 % (11.5-14.5); WHITE BLOOD COUNT 10.6 x10^3/uL (4.0-11.0)
[2018-06-23] MEDS ORDERED: ONDANSETRON PF 4 MG/2 ML VIAL. ONE (19:47)
--- NOTE | 2018-06-23 20:01 | RAD ---
Transvaginal ultrasound pelvis: HISTORY: Abnormal CT Transvaginal scanning was performed and multiple static images were obtained. There is complex fluid in the pelvis. The right ovary appears normal normal blood flow measures 2.7 x 1.6 x 1.5 centers. Left ovary measures 4.0 x 2.8 x 2.7 cm and there is normal flow seen on the periphery of the left ovary. There is a small cyst the left ovary measures 2.0 x 1.7 x 1.8 cm. The endometrial the uterus appears normal and measures 6 mm in thickness. IMPRESSION: 1. Complex fluid in the pelvis suggesting hemorrhage. 2. Abnormal appearing left ovary. Possible ruptured hemorrhagic cyst. must be excluded. Electronically signed by: Dom Joya III, MD (06/23/2018 7:57 PM) [facility]
[2018-06-23] MEDS ORDERED: IV RINGERS SOLUTION,LACTATED 1,000 ML IV ONE (21:00)
[2018-06-23] MEDS ORDERED: ONDANSETRON PF 4 MG/2 ML VIAL. IV ONE ×2 (21:15→21:30)
[2018-06-23 21:40] VITALS: BP 95/41
[2018-06-25 13:12] LABS: CHLAMYDIA PROBE Negative (Negative)
== END 2018-06-23 21:44 | disposition short-term general hospital (02) ==
LOC: ER 15:34
DX: R10.32 Left lower quadrant pain (principal); N89.8 Other specified noninflammatory disorders of vagina; F17.210 Nicotine dependence, cigarettes, uncomplicated; Z98.51 Tubal ligation status
CPT/HCPCS: 36415; 74176; 76830; 80053; 81001; 83690; 84703; 85025; 85027; 87491; 87591; 96372; 96374; 96375; 99285; J1885; J2270; J2405; Q0111; J7030

== ENCOUNTER 2018-10-02 17:10 | Emergency (ER) | payer SELFPAY ==
[~2018-10-02] VITALS: Ht 322.6 cm; Wt 56.0 kg
[~2018-10-02 17:10] MED LIST changes: -ALBU18HF IH; +ALBU2.5V8 IH
[2018-10-02 17:25] VITALS: BP 101/67
[2018-10-02] MEDS ORDERED: OSEL75CA PO (17:55)
[2018-10-02] MEDS ORDERED: DICY20TA3 PO (17:55)
[2018-10-02] MEDS ORDERED: ONDA4TAB7 PO (17:55)
--- NOTE | 2018-10-02 17:56 | PHYS DOC ---
Past History Past Medical History: No Pertinent History, Ovarian Cyst Past Surgical History: Tubal ligation, Other Smoking: Cigarettes Alcohol Use: Occasionally Drug Use: None Adult General Chief Complaint Chief Complaint: FLU SYMPTOM HPI HPI Patient is a 28-year-old female presents with nausea, vomiting, crampy abdominal pain, and diarrhea. These symptoms started today. Patient has multiple family members in the household with similar symptoms. No fever. No blood in the stool or emesis. No travel. Oral intake make things worse. Not eating makes things a little bit better. Symptoms are moderate in intensity.[] Review of Systems Review of Systems Constitutional: Denies fever or chills [] Eyes: Denies change in visual acuity, redness, or eye pain [] HENT: Denies nasal congestion or sore throat [] Respiratory: Denies cough or shortness of breath [] Cardiovascular: No chest pain or palpitations[] GI: See history of present illness[] : Denies dysuria or hematuria [] Musculoskeletal: Denies back pain or joint pain [] Integument: Denies rash or skin lesions [] Neurologic: Denies headache, focal weakness or sensory changes [] Endocrine: Denies polyuria or polydipsia [] All other systems were reviewed and found to be within normal limits, except as documented in this note. Allergies Allergies Allergies Coded Allergies Type Severity Reaction Last Updated Verified No Known Drug Allergies 10/02/18 No Physical Exam Physical Exam Constitutional: Well developed, well nourished, no acute distress, non-toxic appearance. [] HENT: Normocephalic, atraumatic, bilateral external ears normal, oropharynx moist, no oral exudates, nose normal. [] Eyes: PERRLA, EOMI, conjunctiva normal, no discharge. [] Neck: Normal range of motion, no tenderness, supple, no stridor. [] Cardiovascular:Heart rate regular rhythm, no murmur [] Lungs & Thorax: Bilateral breath sounds clear to auscultation [] Abdomen: Bowel sounds normal, soft, diffuse tenderness, no rebound, no guarding , no rigidity, sits up without any difficulty, no masses, no pulsatile masses. [ ] Skin: Warm, dry, no erythema, no rash. [] Back: No tenderness, no CVA tenderness. [] Extremities: No tenderness, no cyanosis, no clubbing, ROM intact, no edema. [] Neurologic: Alert and oriented X 3, normal motor function, normal sensory function, no focal deficits noted. [] Psychologic: Affect normal, judgement normal, mood normal. [] EKG EKG [] Radiology/Procedures Radiology/Procedures [] Course & Med Decision Making Course & Med Decision Making Pertinent Labs and Imaging studies reviewed. (See chart for details) Medical decision making: Given that there is multiple family members in the same household with similar symptoms including a daughter with a fever and a son with nausea and vomiting issues, treating family members that are present for influenza-like illness. Will also address nausea and vomiting as well as the abdominal pain in mother.[] Dragon Disclaimer Dragon Disclaimer This electronic medical record was generated, in whole or in part, using a voice recognition dictation system. Departure Departure: Impression: Primary Impression: Nausea & vomiting Disposition: 01 HOME, SELF-CARE Condition: IMPROVED Referrals: [facility] (PCP) Patient Instructions: Nausea and Vomiting Additional Instructions: Drink plenty of fluids, frequent small sips. No fatty foods, no milk, and no pepper for the next 48 hours. For the next 48 hours eat a diet rich in carbohydrates with foods such as bananas, rice, applesauce, and toast. Follow- up with your regular doctor in 2 days. If you do not have a regular doctor list of local clinics will be provided for you. Return to the ER if unable to tolerate liquids or any other concerns. Scripts Dicyclomine Hcl (DICYCLOMINE HCL) 20 Mg Tablet 1 TAB PO TID for abdominal pain/cramping, #30 TAB 0 Refills Prov: RODRIGO SIDHU DO 10/02/18 Ondansetron Hcl (ZOFRAN) 4 Mg Tablet 1 TAB PO Q6HRS for nausea or vomiting, #20 TAB Prov: RODRIGO SIDHU DO 10/02/18 Oseltamivir Phosphate (TAMIFLU) 75 Mg Capsule 1 CAP PO BID for flu, #10 CAP Prov: RODRIGO SIDHU DO 10/02/18 Problem Qualifiers Primary Impression: Nausea & vomiting Vomiting type: unspecified Vomiting Intractability: non-intractable Qualified Codes: R11.2 - Nausea with vomiting, unspecified RODRIGO SIDHU DO Oct 02, 2018 17:56
== END 2018-10-02 18:07 | disposition home or self-care (01) ==
LOC: ER 17:10
DX: R11.2 Nausea with vomiting, unspecified (principal); R19.7 Diarrhea, unspecified; R10.84 Generalized abdominal pain; F17.210 Nicotine dependence, cigarettes, uncomplicated; Z98.51 Tubal ligation status
CPT/HCPCS: 99283

== ENCOUNTER 2019-03-11 06:06 | Emergency (ER) | payer SELFPAY ==
[~2019-03-11 06:06] MED LIST changes: +DICY20TA3 PO; +ONDA4TAB7 PO; +OSEL75CA PO
--- NOTE | 2019-03-11 06:25 | PHYS DOC ---
Past History Past Medical History: Other Past Surgical History: Tubal ligation, Other Smoking: Cigarettes Alcohol Use: Occasionally Drug Use: None Adult General Chief Complaint Chief Complaint: ABDOMINAL PAIN [facility] HPI Patient is a 28-year-old female who presents with complaint of right lower quadrant abdominal pain. Patient states that she had a vague pain in her right side yesterday but pain had progressively gotten worse and has now settled into the right lower abdomen. She denies any nausea or vomiting. She also denies any change in appetite. She rates pain currently at a 5-6 out of 10. She states that the pain waxes and wanes. She is not aware of any aggravating or alleviating factors to the pain. Patient does have history of ovarian cyst rupture for which she had surgery along with tubal ligation.[] Review of Systems Review of Systems Constitutional: Denies fever or chills [] Respiratory: Denies cough or shortness of breath [] Cardiovascular: No additional information not addressed in HPI [] GI: Complains of abdominal pain without vomiting or diarrhea [] : Denies dysuria or hematuria [] Musculoskeletal: Denies back pain or joint pain [] All other systems were reviewed and found to be within normal limits, except as documented in this note. Allergies Allergies Allergies Coded Allergies Type Severity Reaction Last Updated Verified No Known Drug Allergies 10/02/18 No Physical Exam Physical Exam Constitutional: Well developed, well nourished, no acute distress, non-toxic appearance. [] HENT: Normocephalic, atraumatic, bilateral external ears normal, oropharynx moist, no oral exudates, nose normal. [] Eyes: PERRLA, EOMI, conjunctiva normal, no discharge. [] Neck: Normal range of motion, no tenderness, supple, no stridor. [] Cardiovascular: Regular rate and rhythm[] Lungs & Thorax: Bilateral breath sounds clear to auscultation [] Abdomen: Bowel sounds normal, soft, with mild right lower quadrant tenderness. [] Skin: Warm, dry, no erythema, no rash. [] Extremities: No tenderness, no cyanosis, no clubbing, ROM intact, no edema. [] Neurologic: Alert and oriented X 3, no focal deficits noted. [] Current Patient Data Vital Signs Vital Signs Date Time Temp Pulse Resp B/P (MAP) Pulse Ox O2 Delivery O2 Flow Rate FiO2 03/11/19 06:09 98.6 58 16 98 Room Air EKG EKG [] Radiology/Procedures Radiology/Procedures [] Impressions: PROCEDURE: CT ABD PELV W/ IV CONTRST ONLY INDICATION: Right lower quadrant abdominal pain COMPARISON: June 2018 TECHNIQUE: Axial CT images obtained through the abdomen and pelvis with contrast. One or more of the following individualized dose reduction techniques were utilized for this examination: 1. Automated exposure control; 2. Adjustment of the mA and/or kV according to patient size; 3. Use of iterative reconstruction technique. FINDINGS: Abdominal aorta is not aneurysmal. No worrisome hepatic mass. No peripancreatic fluid collection. Spleen unremarkable. No hydronephrosis. Urinary bladder is largely decompressed with prominence the wall. Small free fluid in pelvis. The appendix does not appear inflamed. No dilated loops of bowel to suggest obstruction. There are some degenerative changes the spine with disc protrusions. IMPRESSION: 1. No evidence of appendicitis, hydronephrosis or bowel obstruction. 2. The urinary bladder is largely decompressed with some prominence of the wall. Prominence the wall could be from lack of distention but would correlate with symptoms to ensure that there is not a pathologic cause such as cystitis. Electronically signed by: Juana Henriquez MD (03/11/2019 7:43 AM) [facility] DICTATED AND SIGNED BY: JUANA HENRIQUEZ MD DATE: 03/11/19 0743 Course & Med Decision Making Course & Med Decision Making Pertinent Labs and Imaging studies reviewed. (See chart for details) [] Dragon Disclaimer Dragon Disclaimer This electronic medical record was generated, in whole or in part, using a voice recognition dictation system. Departure Departure: Impression: Primary Impression: RLQ abdominal pain Disposition: HOME, SELF-CARE Condition: STABLE Referrals: PCP,NO (PCP) Patient Instructions: Abdominal Pain Scripts Ondansetron Hcl (ZOFRAN) 4 Mg Tablet 4 MG PO Q6HRS PRN for NAUSEA, #12 TAB Prov: ONEIL NY Jr. DO 03/11/19 Tramadol Hcl (TRAMADOL HCL) 50 Mg Tablet 50 MG PO PRN Q6HRS PRN for PAIN, #12 TAB Prov: ONEIL NY Jr. DO 03/11/19 ONEIL NY Jr. DO Mar 11, 2019 06:25
[2019-03-11] MEDS ORDERED: IOHEXOL 300 MG/ML 75 ML VIAL. IV ONE (06:30)
[2019-03-11] MEDS ORDERED: KETOROLAC 30 MG/ML VIAL. IV ONE (06:30)
[2019-03-11] MEDS ORDERED: IV NORMAL SALINE 1,000ML 1,000 ML IV SCH (06:30)
[2019-03-11 06:43] LABS: BASO % 1 % (0-3); EOS # 0.1 x10^3/uL (0.0-0.7); EOS % 2 % (0-3); HEMATOCRIT 41.1 % (36.0-47.0); HEMOGLOBIN 13.9 g/dL (12.0-15.5); LYMPH # 2.3 x10^3/uL (1.0-4.8); LYMPH % 40 % (24-48); MEAN CORPUSCULAR HEMOGLOBIN 31 pg (25-35); MEAN CORPUSCULAR HGB CONC 34 g/dL (31-37); MEAN CORPUSCULAR VOLUME 91 fL (79-100); MONO # 0.5 x10^3/uL (0.0-1.1); MONO % 9 % (0-9); NEUT # 2.8 x10^3uL (1.8-7.7); NEUT % 49 % (31-73); PLATELET COUNT 239 x10^3/uL (140-400); RED CELL DISTRIBUTION WIDTH 13.9 % (11.5-14.5); WHITE BLOOD COUNT 5.7 x10^3/uL (4.0-11.0)
[2019-03-11] MEDS ORDERED: CONTRAST GIVEN MC PRN (06:45)
[2019-03-11 06:55] LABS: ALBUMIN 3.5 g/dL (3.4-5.0); ALBUMIN/GLOBULIN RATIO 0.9 (1.0-1.7); CALCIUM 8.6 mg/dL (8.5-10.1); CREATININE 0.9 mg/dL (0.6-1.0); GFR 75.1; POTASSIUM 3.6 mmol/L (3.5-5.1); TOTAL BILIRUBIN 0.5 mg/dL (0.2-1.0); TOTAL PROTEIN 7.4 g/dL (6.4-8.2)
[2019-03-11 07:07] LABS: BACTERIA,URINE FEW /HPF (0-FEW); BILIRUBIN,URINE NEG (NEG); CLARITY,URINE HAZY; COLOR,URINE YELLOW; GLUCOSE,URINE NEG (NEG); NITRITE,URINE NEG (NEG); SQUAMOUS EPITHELIAL CELL,UR MOD /LPF; UROBILINOGEN,URINE 0.2 mg/dL (0.2 mg/dL)
--- NOTE | 2019-03-11 07:45 | RAD ---
INDICATION: Right lower quadrant abdominal pain COMPARISON: June 2018 TECHNIQUE: Axial CT images obtained through the abdomen and pelvis with contrast. One or more of the following individualized dose reduction techniques were utilized for this examination: 1. Automated exposure control; 2. Adjustment of the mA and/or kV according to patient size; 3. Use of iterative reconstruction technique. FINDINGS: Abdominal aorta is not aneurysmal. No worrisome hepatic mass. No peripancreatic fluid collection. Spleen unremarkable. No hydronephrosis. Urinary bladder is largely decompressed with prominence the wall. Small free fluid in pelvis. The appendix does not appear inflamed. No dilated loops of bowel to suggest obstruction. There are some degenerative changes the spine with disc protrusions. IMPRESSION: 1. No evidence of appendicitis, hydronephrosis or bowel obstruction. 2. The urinary bladder is largely decompressed with some prominence of the wall. Prominence the wall could be from lack of distention but would correlate with symptoms to ensure that there is not a pathologic cause such as cystitis. Electronically signed by: Percy Henriquez MD (03/11/2019 7:43 AM) [facility]
[2019-03-11] MEDS ORDERED: TRAM50TA PO (07:56)
[2019-03-11] MEDS ORDERED: ONDA4TAB7 PO (07:56)
[2019-03-11 08:15] VITALS: BP 103/60
== END 2019-03-11 08:12 | disposition home or self-care (01) ==
LOC: ER 06:06
DX: R10.31 Right lower quadrant pain (principal); Z98.51 Tubal ligation status; F17.210 Nicotine dependence, cigarettes, uncomplicated
CPT/HCPCS: 36415; 74177; 80053; 81001; 81025; 83690; 85025; 96374; 99285; J1885; Q9967; J7030

== ENCOUNTER 2019-05-21 20:35 | Emergency (ER) | payer SELFPAY ==
[~2019-05-21] VITALS: Ht 322.6 cm; Wt 56.0 kg
[~2019-05-21 20:35] MED LIST changes: +TRAM50TA PO
--- NOTE | 2019-05-21 21:04 | PHYS DOC ---
Past History Past Medical History: Other Additional Past Medical Histor: ovarian cysts Past Surgical History: Tubal ligation, Other Smoking: Cigarettes Alcohol Use: Occasionally Drug Use: None Adult General Chief Complaint Chief Complaint: ABDOMINAL PAIN HPI HPI Patient is a 29-year-old female who presents to the emergency department for evaluation. She states that for the past several weeks, she has had some inte rmittent lower abdominal pain, along with some whitish vaginal discharge. She has not had any diarrhea, or dysuria, but has had some intermittent nausea and vomiting. She also missed her last menstrual period, only having some light spotting last month, but states that she has had a tubal ligation. She has had some abdominal problems in the past, with ovarian cysts, and has had 2 CAT scans at this facility in the past 12 months. Prior records have been reviewed. She states she was tested [facility] for STDs via a urine test a week ago and was reported to be negative, but she did not get tested for bacterial vaginosis and her discharge almost feel similar to her prior episodes of such. She did not have a vaginal exam done at that appointment. There are no alleviating or exacerbating factors to her symptoms otherwise. Review of Systems Review of Systems Constitutional: Denies fever or chills [] Eyes: Denies change in visual acuity, redness, or eye pain [] HENT: Denies nasal congestion or sore throat [] Respiratory: Denies cough or shortness of breath [] Cardiovascular:The patient denies any shortness of breath, chest pain, palpitations, or orthopnea [] GI: Denies bloody stools or diarrhea [] : Denies dysuria or hematuria [] Musculoskeletal: Denies back pain or joint pain [] Integument: Denies rash or skin lesions [] Neurologic: Denies headache, focal weakness or sensory changes [] Endocrine: Denies polyuria or polydipsia [] All other systems were reviewed and found to be within normal limits, except as documented in this note. Allergies Allergies Allergies Coded Allergies Type Severity Reaction Last Updated Verified No Known Drug Allergies 10/02/18 No Physical Exam Physical Exam PHYSICAL EXAM: CONSTITUTIONAL: Well developed, well nourished HEAD: normocephalic, atraumatic EENT: PERRL, EOMI. Conjunctivae normal color, sclerae non-icteric; moist mucous membranes. NECK: Supple, non-tender; no meningismus. LUNGS: Lungs CTA, breathing even and unlabored. Normal air movement. HEART: Regular rate and rhythm, no murmur CHEST: No deformity; non-tender ABDOMEN: The abdomen is soft, and non-tender, no masses or bruits. EXTREM: Normal ROM; no deformity, no calf tenderness. Normal pulses palpable in all extremities. There is no pedal edema. SKIN: No rash; no diaphoresis NEURO: Alert; normal speech and cognition; CN's grossly intact; strength grossly intact without focal deficit. BACK: No CVA TTP. PELVIC EXAM: Normal external genitalia. There is a moderate amount of thin white frothy vaginal discharge, consistent with bacterial vaginosis, the cervix otherwise appears normal, there is no cervical motion tenderness, adnexal tenderness to palpation or palpable mass. Exam was performed in the presence of Anali Simpson. EKG EKG [] Radiology/Procedures Radiology/Procedures [] Course & Med Decision Making Course & Med Decision Making Pertinent Labs and Imaging studies reviewed. (See chart for details) [] WET PREP Final YEAST NONE SEEN TRICHOMONAS NONE SEEN CLUE CELLS CLUE CELLS PRESENT WBCS MODERATE RBCS OCCASIONAL SQUAMOUS EPS MANY Patient remains stable. I discussed test results, the need for close follow-up, and return precautions. Dragon Disclaimer Dragon Disclaimer This electronic medical record was generated, in whole or in part, using a voice recognition dictation system. Departure Departure: Impression: Primary Impression: Bacterial vaginosis Disposition: HOME, SELF-CARE Condition: STABLE Patient Instructions: Abdominal Pain (Nonspecific), Bacterial Vaginosis Additional Instructions: [employer] for further evaluation. Please call [phone] to schedule an appoi ntment. Scripts Metronidazole (FLAGYL) 500 Mg Tablet 1 TAB PO BID for -, #14 TAB Prov: ANNE MARIE DON MD 05/21/19 ANNE MARIE DON MD May 21, 2019 21:04
[2019-05-21 21:40] LABS: BASO % 1 % (0-3); EOS # 0.1 x10^3/uL (0.0-0.7); EOS % 2 % (0-3); HEMOGLOBIN 12.9 g/dL (12.0-15.5); LYMPH # 2.2 x10^3/uL (1.0-4.8); LYMPH % 36 % (24-48); MEAN CORPUSCULAR HEMOGLOBIN 31 pg (25-35); MEAN CORPUSCULAR HGB CONC 34 g/dL (31-37); MEAN CORPUSCULAR VOLUME 92 fL (79-100); MONO # 0.6 x10^3/uL (0.0-1.1); MONO % 9 % (0-9); NEUT # 3.1 x10^3uL (1.8-7.7); NEUT % 52 % (31-73); PLATELET COUNT 243 x10^3/uL (140-400); RED BLOOD COUNT 4.15 x10^6/uL (3.50-5.40); RED CELL DISTRIBUTION WIDTH 12.9 % (11.5-14.5)
[2019-05-21 21:48] LABS: BACTERIA,URINE 0 /HPF (0-FEW); BILIRUBIN,URINE NEG (NEG); CLARITY,URINE CLEAR; COLOR,URINE YELLOW; GLUCOSE,URINE NEG (NEG); NITRITE,URINE NEG (NEG); RBC,URINE OCC /HPF (0-2); SQUAMOUS EPITHELIAL CELL,UR MOD /LPF; UROBILINOGEN,URINE 0.2 mg/dL (0.2 mg/dL); WBC,URINE OCC /HPF (0-4)
[2019-05-21] MEDS ORDERED: METR500T PO (22:02)
[2019-05-21 22:06] LABS: ALBUMIN 3.6 g/dL (3.4-5.0); CALCIUM 8.8 mg/dL (8.5-10.1); CREATININE 0.9 mg/dL (0.6-1.0); GFR 74.6; POTASSIUM 3.2 mmol/L (3.5-5.1); TOTAL BILIRUBIN 0.2 mg/dL (0.2-1.0); TOTAL PROTEIN 7.2 g/dL (6.4-8.2)
[2019-05-21 23:06] VITALS: BP 105/65
[2019-05-23 18:06] LABS: CHLAMYDIA PROBE Negative (Negative)
== END 2019-05-21 23:06 | disposition home or self-care (01) ==
LOC: ER 20:35
DX: N76.0 Acute vaginitis (principal); B96.89 Other specified bacterial agents as the cause of diseases classified elsewhere; Z98.51 Tubal ligation status; F17.210 Nicotine dependence, cigarettes, uncomplicated
CPT/HCPCS: 36415; 80053; 81001; 81025; 83690; 85025; 87491; 87591; 99284; Q0111

== ENCOUNTER 2019-10-12 14:37 | Emergency (ER) | payer SELFPAY ==
[~2019-10-12] VITALS: Ht 170.2 cm; Wt 64.2 kg
[2019-10-12 14:37] VITALS: BP 100/71
[~2019-10-12 14:37] MED LIST changes: +METR500T PO
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
== END 2019-10-12 15:50 | disposition home or self-care (01) ==
LOC: ER 14:37
DX: S30.1XXA Contusion of abdominal wall, initial encounter (principal); S30.0XXA Contusion of lower back and pelvis, initial encounter; S80.11XA Contusion of right lower leg, initial encounter; R51 Headache; V89.2XXA Person injured in unspecified motor-vehicle accident, traffic, initial encounter; Y93.89 Activity, other specified; Y92.89 Other specified places as the place of occurrence of the external cause; Y99.8 Other external cause status
CPT/HCPCS: 99281

== ENCOUNTER 2019-11-24 11:51 | Emergency (ER) | payer SELFPAY ==
[~2019-11-24] VITALS: Ht 170.2 cm; Wt 63.8 kg
--- NOTE | 2019-11-24 12:16 | PHYS DOC ---
Past History Past Medical History: Ovarian Cyst, Other Additional Past Medical Histor: ovarian cysts Past Surgical History: Tubal ligation, Other Additional Past Surgical Histo: ovarian cyst drained Smoking: Cigarettes Additional Smoking Information: 1/4 PACK/DAY Alcohol Use: Occasionally Drug Use: Marijuana General Adult EDM: Chief Complaint: ABDOMINAL PAIN HPI: HPI: Patient is a 29-year-old female who presents to the emergency department for evaluation of left pelvic pain which began this morning. She denies any urinary symptoms, vaginal bleeding or discharge. Has not had any fevers or chills, nausea, vomiting, or diarrhea. She states he has had ovarian cyst in the past and states that this pain feels somewhat similar. There are no alleviating or exacerbating factors to her symptoms. She denies concern for STDs, and declines pelvic examination, expressing understanding of the limitations were placed on her assessment. Her LMP was approximately November 10. She does voice concern that she is having another ruptured ovarian cyst. Review of Systems: Review of Systems: Constitutional: Denies fever or chills Eyes: Denies change in visual acuity HENT: Denies nasal congestion or sore throat Respiratory: Denies cough or shortness of breath Cardiovascular: Denies chest pain or edema GI: Denies abdominal pain, nausea, vomiting, bloody stools or diarrhea : Denies dysuria, vaginal bleeding, or discharge. Musculoskeletal: Denies back pain or joint pain Integument: Denies rash Neurologic: Denies headache, focal weakness or sensory changes Endocrine: Denies polyuria or polydipsia Lymphatic: Denies swollen glands Psychiatric: Denies depression or anxiety Heart Score: Risk Factors: Risk Factors: DM, Current or recent (<one month) smoker, HTN, HLP, family history of CAD, obesity. Risk Scores: Score 0 - 3: 2.5% MACE over next 6 weeks - Discharge Home Score 4 - 6: 20.3% MACE over next 6 weeks - Admit for Clinical Observation Score 7 - 10: 72.7% MACE over next 6 weeks - Early Invasive Strategies Allergies: Allergies: Allergies Coded Allergies Type Severity Reaction Last Updated Verified No Known Drug Allergies 10/02/18 No Physical Exam: PE: PHYSICAL EXAM: CONSTITUTIONAL: Well developed, well nourished HEAD: normocephalic, atraumatic EENT: PERRL, EOMI. Conjunctivae normal color, sclerae non-icteric; moist mucous membranes. NECK: Supple, non-tender; no meningismus. LUNGS: Lungs CTA, breathing even and unlabored. Normal air movement. HEART: Regular rate and rhythm, no murmur CHEST: No deformity; non-tender ABDOMEN: The abdomen is soft, there is mild left suprapubic tenderness to palpation without rebound or guarding. The remainder of the abdomen is soft and non-tender, no masses or bruits. EXTREM: Normal ROM; no deformity, no calf tenderness. Normal pulses palpable in all extremities. There is no pedal edema. SKIN: No rash; no diaphoresis NEURO: Alert; normal speech and cognition; CN's grossly intact; strength grossly intact without focal deficit. BACK: No CVA TTP. Current Patient Data: Labs: Laboratory Tests Test 11/24/19 12:13 11/24/19 12:20 11/24/19 12:24 Urine Collection Type Unknown Urine Color Yellow Urine Clarity Hazy Urine pH 6.5 Urine Specific [place] 1.020 Urine Protein Neg Urine Glucose (UA) Neg mg/dL Urine Ketones (Stick) Neg mg/dL Urine Blood Neg Urine Nitrite Neg Urine Bilirubin Neg Urine Urobilinogen Dipstick 0.2 mg/dL Urine Leukocyte Esterase Trace Urine RBC 1-2 /HPF Urine WBC 5-10 /HPF Urine Squamous Epithelial Cells Mod /LPF Urine Bacteria Mod /HPF Urine Mucus Mod /LPF Bedside Urine HCG, Qualitative hcg negative White Blood Count 5.3 x10^3/uL Red Blood Count 4.70 x10^6/uL Hemoglobin 14.4 g/dL Hematocrit 43.0 % Mean Corpuscular Volume 91 fL Mean Corpuscular Hemoglobin 31 pg Mean Corpuscular Hemoglobin Concent 34 g/dL Red Cell Distribution Width 13.4 % Platelet Count 212 x10^3/uL Neutrophils (%) (Auto) 59 % Lymphocytes (%) (Auto) 29 % Monocytes (%) (Auto) 10 % Eosinophils (%) (Auto) 2 % Basophils (%) (Auto) 0 % Neutrophils # (Auto) 3.1 x10^3uL Lymphocytes # (Auto) 1.5 x10^3/uL Monocytes # (Auto) 0.5 x10^3/uL Eosinophils # (Auto) 0.1 x10^3/uL Basophils # (Auto) 0.0 x10^3/uL Sodium Level 141 mmol/L Potassium Level 3.6 mmol/L Chloride Level 103 mmol/L Carbon Dioxide Level 29 mmol/L Anion Gap 9 Blood Urea Nitrogen 9 mg/dL Creatinine 0.7 mg/dL Estimated GFR (Cockcroft-Gault) 99.6 BUN/Creatinine Ratio 13 Glucose Level 74 mg/dL Calcium Level 8.6 mg/dL Total Bilirubin 0.4 mg/dL Aspartate Amino Transf (AST/SGOT) 19 U/L Alanine Aminotransferase (ALT/SGPT) 24 U/L Alkaline Phosphatase 57 U/L Total Protein 7.8 g/dL Albumin 3.7 g/dL Albumin/Globulin Ratio 0.9 Lipase 154 U/L Vital Signs: Vital Signs Date Time Temp Pulse Resp B/P (MAP) Pulse Ox O2 Delivery O2 Flow Rate FiO2 11/24/19 12:00 98.3 94 20 120/78 (92) 99 Room Air EKG: EKG: [] Radiology/Procedures: Radiology/Procedures: PROCEDURE: PELVIS COMPLETE PELVIS COMPLETE History: Left pelvic pain Comparison: June 23, 2018 Findings: Multiple transabdominal sonographic images of pelvis are submitted. Uterus measured 7.8 x 4.3 cm. Right ovary measured 2.1 x 1.5 x 1.4 cm, normal low resistance vascularity. Left ovary measured 2.9 x 2.3 x 1.9 cm with normal low resistance vascularity. Endometrial thickness is within normal limits about 0.8 cm. No free fluid is demonstrated. Impression: 1. No significant abnormality is demonstrated.[] Course & Med Decision Making: Course & Med Decision Making Pertinent Labs and Imaging studies reviewed. (See chart for details) [] Patient remains stable. I discussed test results, the need for close follow- up, and return precautions. Dragon Disclaimer: Warren Disclaimer: This electronic medical record was generated, in whole or in part, using a voice recognition dictation system. Departure Departure: Impression: Primary Impression: Pelvic pain in female Disposition: 01 HOME, SELF-CARE Condition: STABLE Patient Instructions: Claire, Pelvic Pain, Female Additional Instructions: Ibuprofen 400-600 mg every 6 hours may help improve your symptoms. Follow-up with gynecology as needed for persistent or worsening pain. Please call [phone] schedule follow-up appointment. ANNE MARIE DON MD November 24, 2019 12:16
[2019-11-24 12:42] LABS: BILIRUBIN,URINE NEG (NEG); CLARITY,URINE HAZY; COLOR,URINE YELLOW; GLUCOSE,URINE NEG (NEG); NITRITE,URINE NEG (NEG); UROBILINOGEN,URINE 0.2 mg/dL (0.2 mg/dL)
[2019-11-24 12:43] LABS: BACTERIA,URINE MOD /HPF (0-FEW); SQUAMOUS EPITHELIAL CELL,UR MOD /LPF
[2019-11-24 12:44] LABS: BASO % 0 % (0-3); EOS # 0.1 x10^3/uL (0.0-0.7); EOS % 2 % (0-3); HEMOGLOBIN 14.4 g/dL (12.0-15.5); LYMPH # 1.5 x10^3/uL (1.0-4.8); LYMPH % 29 % (24-48); MEAN CORPUSCULAR HEMOGLOBIN 31 pg (25-35); MEAN CORPUSCULAR HGB CONC 34 g/dL (31-37); MEAN CORPUSCULAR VOLUME 91 fL (79-100); MONO # 0.5 x10^3/uL (0.0-1.1); MONO % 10 % (0-9); NEUT # 3.1 x10^3uL (1.8-7.7); NEUT % 59 % (31-73); PLATELET COUNT 212 x10^3/uL (140-400); RED CELL DISTRIBUTION WIDTH 13.4 % (11.5-14.5); WHITE BLOOD COUNT 5.3 x10^3/uL (4.0-11.0)
[2019-11-24 12:51] LABS: CALCIUM 8.6 mg/dL (8.5-10.1); CREATININE 0.7 mg/dL (0.6-1.0); GFR 99.6; POTASSIUM 3.6 mmol/L (3.5-5.1)
--- NOTE | 2019-11-24 12:56 | RAD ---
PELVIS COMPLETE History: Left pelvic pain Comparison: June 23, 2018 Findings: Multiple transabdominal sonographic images of pelvis are submitted. Uterus measured 7.8 x 4.3 cm. Right ovary measured 2.1 x 1.5 x 1.4 cm, normal low resistance vascularity. Left ovary measured 2.9 x 2.3 x 1.9 cm with normal low resistance vascularity. Endometrial thickness is within normal limits about 0.8 cm. No free fluid is demonstrated. Impression: 1. No significant abnormality is demonstrated. Electronically signed by: Bola Francisco MD (11/24/2019 12:53 PM) [id number]
[2019-11-24 12:57] LABS: ALBUMIN 3.7 g/dL (3.4-5.0); ALBUMIN/GLOBULIN RATIO 0.9 (1.0-1.7); TOTAL BILIRUBIN 0.4 mg/dL (0.2-1.0); TOTAL PROTEIN 7.8 g/dL (6.4-8.2)
[2019-11-24 12:59] VITALS: BP 107/74
== END 2019-11-24 13:25 | disposition home or self-care (01) ==
LOC: ER 11:51
DX: R10.2 Pelvic and perineal pain (principal); F17.210 Nicotine dependence, cigarettes, uncomplicated; Z98.51 Tubal ligation status
CPT/HCPCS: 36415; 76856; 80053; 81001; 81025; 83690; 85025; 87086; 99284

== ENCOUNTER 2019-12-23 19:03 | Emergency (ER) | payer SELFPAY ==
[~2019-12-23] VITALS: Ht 170.2 cm; Wt 69.2 kg
[2019-12-23 19:14] VITALS: BP 113/85
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
[2019-12-23] MEDS ORDERED: IBUPROFEN 600 MG TABLET. PO ONE (19:45)
[2019-12-23] MEDS ORDERED: TRAM50TA PO (19:57)
== END 2019-12-23 20:03 | disposition home or self-care (01) ==
LOC: ER 19:03
DX: S52.501A Unspecified fracture of the lower end of right radius, initial encounter for closed fracture (principal); F17.210 Nicotine dependence, cigarettes, uncomplicated; W51.XXXA Accidental striking against or bumped into by another person, initial encounter; Y93.89 Activity, other specified; Y92.89 Other specified places as the place of occurrence of the external cause; Y99.8 Other external cause status
CPT/HCPCS: 29125; 73110; 73130; 99284

== ENCOUNTER 2021-09-19 16:01 | Emergency (ER) | payer OTHER ==
[~2021-09-19] VITALS: Ht 170.2 cm; Wt 69.2 kg
[~2021-09-19 16:01] MED LIST changes: +DICY20TA PO; -DICY20TA3 PO
--- NOTE | 2021-09-19 16:29 | PHYS DOC ---
Past History Past Medical History: Ovarian Cyst, Other Additional Past Medical Histor: ovarian cysts (LADARIUS DOUGLAS MD) Past Surgical History: Tubal ligation, Other Additional Past Surgical Histo: ovarian cyst drained (LADARIUS DOUGLAS MD) Smoking: Cigarettes Alcohol Use: Occasionally Drug Use: Marijuana (LADARIUS DOUGLAS MD) General Adult EDM: Chief Complaint: ABDOMINAL PAIN HPI: HPI: Patient is a 31-year-old female coming in for right lower quadrant pain since this morning. Patient says it started after she woke up. Says the pain is intermittent and sharp, currently does not have pain now. Patient feels like is gotten slightly better throughout the day. Patient states for the last week she has had a little bit of blood with her normal vaginal discharge. Patient states her last period was 2 weeks ago and had completely ended. Patient states that she has a history of a ruptured hemorrhagic cyst 2 to 3 years ago, it required going to the OR for cleanout of hemoperitoneum. Patient states she has a BTL but no other surgeries. Denies any sexual activity in last month. (LADARIUS DOUGLAS MD) Review of Systems: Review of Systems: All other systems within normal limits except for as noted in the HPI (LADARIUS DOUGLAS MD) Allergies: Allergies: Allergies Coded Allergies Type Severity Reaction Last Updated Verified No Known Drug Allergies 10/02/18 No (LADARIUS DOUGLAS MD) Physical Exam: PE: Constitutional: Well developed, well nourished, no acute distress, non-toxic appearance. [] HENT: Normocephalic, atraumatic, bilateral external ears normal, nose normal. [] Eyes: PERRLA, conjunctiva normal, no discharge. [] Neck: No rigidity, supple, no stridor. [] Cardiovascular: Regular rate and rhythm, brisk cap refill [] Lungs & Thorax: Non labored symmetric respirations, no tachypnea or respiratory distress [] Abdomen: Soft, nondistended, mild tenderness to palpation right lower quadrant, negative Rovsing sign, negative Ramirez sign. : Normal external genitalia, copious yellowish discharge, cervix appears normal without cervicitis, os closed.. Skin: Warm, dry, no erythema, no rash. [] Back: Unremarkable Extremities: No deformities, range of motion grossly intact, no lower extremity edema [] Neurologic: Alert and oriented X 3, no focal deficits noted. [] Psychologic: Affect normal, judgement normal, mood normal. [] (LADARIUS DOUGLAS MD) EKG: EKG: [] (LADARIUS DOUGLAS MD) Radiology/Procedures: Radiology/Procedures: [address] [address] IMAGING REPORT Signed PATIENT: SEFERINO ROSARIO ACCOUNT: [id number] : 1990 LOCATION: ER AGE: 31 SEX: F EXAM STATUS: REG ER ORD. PHYSICIAN: LADARIUS DOUGLAS MD REASON: RLQ pain, h/o ovarian cysts PROCEDURE: PELVIS COMPLETE US PELVIS COMPLETE Clinical Indication: Reason: RLQ pain, h/o ovarian cysts / Comparison: Pelvic ultrasound November 24, 2019. TECHNIQUE: Real-time ultrasound imaging of the pelvis using transabdominal window is performed. Findings: Uterus measures 7.5 x 4.7 x 4 cm. No focal abnormality of the myometrium. The endometrial stripe is normal measuring 9 mm. The ovaries are similar in size and demonstrate normal blood flow. No evidence of adnexal mass. No pelvic free fluid is identified. Urinary bladder is unremarkable. IMPRESSION: 1. Uterus and endometrial stripe are normal. 2. Normal blood flow in the ovaries. Electronically signed by: Sergei Gregory MD (09/19/2021 5:17 PM) [id number] DICTATED AND SIGNED BY: SERGEI GREGORY MD DATE: 09/19/211709 CC: LADARIUS DOUGLAS MD; PCP,NO ~MTH0 0 [] (LADARIUS DOUGLAS MD) Radiology/Procedures: [address] [address] IMAGING REPORT Signed PATIENT: SEFERINO ROSARIO ACCOUNT: [id number] : 1990 LOCATION: ER AGE: 31 SEX: F EXAM STATUS: REG ER ORD. PHYSICIAN: LADARIUS DOUGLAS MD REASON: RLQ pain, h/o ovarian cysts PROCEDURE: PELVIS COMPLETE US PELVIS COMPLETE Clinical Indication: Reason: RLQ pain, h/o ovarian cysts / Comparison: Pelvic ultrasound November 24, 2019. TECHNIQUE: Real-time ultrasound imaging of the pelvis using transabdominal window is performed. Findings: Uterus measures 7.5 x 4.7 x 4 cm. No focal abnormality of the myometrium. The endometrial stripe is normal measuring 9 mm. The ovaries are similar in size and demonstrate normal blood flow. No evidence of adnexal mass. No pelvic free fluid is identified. Urinary bladder is unremarkable. IMPRESSION: 1. Uterus and endometrial stripe are normal. 2. Normal blood flow in the ovaries. Electronically signed by: Sergei Gregory MD (09/19/2021 5:17 PM) [id number] DICTATED AND SIGNED BY: SERGEI GREGORY MD DATE: 09/19/211709 CC: LADARIUS DOUGLAS MD; PCP,NO ~MTH0 [address] [address] IMAGING REPORT Signed PATIENT: SEFERINO ROSARIO ACCOUNT: [id number] : 1990 LOCATION: ER AGE: 31 SEX: F EXAM STATUS: REG ER ORD. PHYSICIAN: LADARIUS DOUGLAS MD REASON: RLQ pain PROCEDURE: CT ABD PELV W/ IV CONTRST ONLY EXAM: CT Abdomen and Pelvis with IV contrast CLINICAL HISTORY: RLQ pain COMPARISON: 03/11/2019 TECHNIQUE: Helical CT of the abdomen and pelvis was performed following the administration of intravenous contrast. Axial, coronal and sagittal reformatted images were generated. PQRS compliance statement - One or more of the following individualized dose reduction techniques were utilized for this study: 1. Automated exposure control 2. Adjustment of the mA and/or kV according to patient size 3. Use of iterative reconstruction technique FINDINGS: Lower Chest: Lung bases are clear. Abdomen and Pelvis: No focal liver lesion. Hepatic hypoattenuation, fatty liver. Spleen, adrenal glands and pancreas are unremarkable. Gallbladder is contracted. No biliary ductal dilatation. Symmetric nephrograms. No focal renal lesion. No hydronephrosis. No hydroureter. Mild bladder wall thickening may be seen with cystitis. Moderate colonic stool content is seen. No small or large bowel dilatation. No bowel obstruction. Appendix is normal. Relatively featureless appearance of a segment of sigmoid colon. Aorta is normal in caliber. Bones: No aggressive osseous lesion is seen. IMPRESSION: 1. Appendix is normal. 2. Mild bladder wall thickening may be seen with cystitis. 3. Relatively featureless appearance of a segment of sigmoid colon may be seen with chronic changes of prior inflammatory colitis. 4. Portal and hepatic hypoattenuation, fatty liver. Electronically signed by: Godfrey Campbell MD (09/19/2021 7:12 PM) [facility] DICTATED AND SIGNED BY: GODFREY CAMPBELL MD DATE: 09/19/211900 CC: LADARIUS DOUGLAS MD; STEPHEN TURNER MD; PCP,NO ~MTH0 0 (STEPHEN TURNER MD) Heart Score: C/O Chest Pain: No Risk Factors: Risk Factors: DM, Current or recent (<one month) smoker, HTN, HLP, family history of CAD, obesity. Risk Scores: Score 0 - 3: 2.5% MACE over next 6 weeks - Discharge Home Score 4 - 6: 20.3% MACE over next 6 weeks - Admit for Clinical Observation Score 7 - 10: 72.7% MACE over next 6 weeks - Early Invasive Strategies (LADARIUS DOUGLAS MD) C/O Chest Pain: N/A (STEPHEN TURNER MD) Course & Med Decision Making: Course & Med Decision Making Pertinent Labs and Imaging studies reviewed. (See chart for details) Patient pending vaginal swabs and CT at shift change. [] (LADARIUS DOUGLAS MD) Course & Med Decision Making See Dr. Douglas chart for detals prior shift change. Patient stay on clear fluids next day. Push fluids. Reexam if no improvement in the next 48 hours. Follow-up primary care. Consider colonoscopy. Return if any concerns. Patient practice safe sex. Take Keflex 500 mg 3 times a day. Pt. after completing course of Keflex take 3 days of Diflucan. Patient follow- up pending cultures. Sexual partner must also retreated. Or will result in reinfection. Return if any concerns. Reexam if no improvement. Impression: 1. Abdomen Pain 2. Diverticular disease-no findings of diverticulitis on CT 3. Constipation 4. Trichomonas (STEPHEN TURNER MD) [place] Disclaimer: Dragon Disclaimer: This electronic medical record was generated, in whole or in part, using a voice recognition dictation system. (LADARIUS DOUGLAS MD) Departure Departure: Referrals: PCP,NO (PCP) Scripts Fluconazole (DIFLUCAN) 100 Mg Tablet 100 MG PO DAILY for post antibiotics for 3 Days, #3 TAB Prov: STEPHEN TURNER MD 09/19/21 Cephalexin (KEFLEX) 500 Mg Capsule 500 MG PO TID for STD, cystitis for 10 Days, #30 CAP Prov: STEPHEN TURNER MD 09/19/21 Dragon Disclaimer This chart was dictated in whole or in part using Voice Recognition software in a busy, high-work load, and often noisy Emergency Department environment. It may contain unintended and wholly unrecognized errors or omissions. (STEPHEN TURNER MD) Dragon Disclaimer This chart was dictated in whole or in part using Voice Recognition software in a busy, high-work load, and often noisy Emergency Department environment. It may contain unintended and wholly unrecognized errors or omissions. (STEPHEN TURNER MD) Dragon Disclaimer This chart was dictated in whole or in part using Voice Recognition software in a busy, high-work load, and often noisy Emergency Department environment. It may contain unintended and wholly unrecognized errors or omissions. (STEPHEN TURNER MD) LADARIUS DOUGLAS MD Sep 19, 2021 16:29 STEPHEN TURNER MD Sep 19, 2021 17:46
[2021-09-19 16:56] LABS: BACTERIA,URINE 0 /HPF (0-FEW); CLARITY,URINE CLEAR; COLOR,URINE YELLOW; GLUCOSE,URINE NEG (NEG); NITRITE,URINE NEG (NEG); SQUAMOUS EPITHELIAL CELL,UR MOD /LPF; UROBILINOGEN,URINE 0.2 mg/dL (0.2 mg/dL)
[2021-09-19 16:57] LABS: TRICHOMONAS,URINE PRESENT
[2021-09-19 17:09] LABS: BASO % 0 % (0-3); EOS # 0.2 x10^3/uL (0.0-0.7); EOS % 3 % (0-3); HEMATOCRIT 38.4 % (36.0-47.0); HEMOGLOBIN 13.1 g/dL (12.0-15.5); LYMPH # 1.6 x10^3/uL (1.0-4.8); LYMPH % 24 % (24-48); MEAN CORPUSCULAR HEMOGLOBIN 31 pg (25-35); MEAN CORPUSCULAR HGB CONC 34 g/dL (31-37); MEAN CORPUSCULAR VOLUME 90 fL (79-100); MONO # 0.6 x10^3/uL (0.0-1.1); MONO % 8 % (0-9); NEUT # 4.3 x10^3uL (1.8-7.7); NEUT % 64 % (31-73); PLATELET COUNT 241 x10^3/uL (140-400); RED BLOOD COUNT 4.27 x10^6/uL (3.50-5.40); RED CELL DISTRIBUTION WIDTH 13.3 % (11.5-14.5); WHITE BLOOD COUNT 6.8 x10^3/uL (4.0-11.0)
[2021-09-19 17:15] LABS: CALCIUM 8.8 mg/dL (8.5-10.1); CREATININE 0.7 mg/dL (0.6-1.0); GFR 98.3; POTASSIUM 4.2 mmol/L (3.5-5.1)
--- NOTE | 2021-09-19 17:19 | RAD ---
US PELVIS COMPLETE Clinical Indication: Reason: RLQ pain, h/o ovarian cysts / Comparison: Pelvic ultrasound November 24, 2019. TECHNIQUE: Real-time ultrasound imaging of the pelvis using transabdominal window is performed. Findings: Uterus measures 7.5 x 4.7 x 4 cm. No focal abnormality of the myometrium. The endometrial stripe is normal measuring 9 mm. The ovaries are similar in size and demonstrate normal blood flow. No evidence of adnexal mass. No pelvic free fluid is identified. Urinary bladder is unremarkable. IMPRESSION: 1. Uterus and endometrial stripe are normal. 2. Normal blood flow in the ovaries. Electronically signed by: Sergei Gregory MD (09/19/2021 5:17 PM) [id number]
[2021-09-19 17:21] LABS: ALBUMIN 3.4 g/dL (3.4-5.0); ALBUMIN/GLOBULIN RATIO 0.9 (1.0-1.7); C REACTIVE PROTEIN 10.4 mg/L (0-3.3); TOTAL BILIRUBIN 0.2 mg/dL (0.2-1.0); TOTAL PROTEIN 7.3 g/dL (6.4-8.2)
[2021-09-19] MEDS ORDERED: KETOROLAC 15 MG/ML VIAL. IVP ONE (17:30)
[2021-09-19] MEDS ORDERED: IOHEXOL 300 MG/ML 75 ML VIAL. IV ONE (17:30)
--- NOTE | 2021-09-19 19:14 | RAD ---
EXAM: CT Abdomen and Pelvis with IV contrast CLINICAL HISTORY: RLQ pain COMPARISON: 03/11/2019 TECHNIQUE: Helical CT of the abdomen and pelvis was performed following the administration of intrave nous contrast. Axial, coronal and sagittal reformatted images were generated. PQRS compliance statement - One or more of the following individualized dose reduction techniques wer e utilized for this study: 1. Automated exposure control 2. Adjustment of the mA and/or kV according to patient size 3. Use of iterative reconstruction technique FINDINGS: Lower Chest: Lung bases are clear. Abdomen and Pelvis: No focal liver lesion. Hepatic hypoattenuation, fatty liver. Spleen, adrenal glands and pancreas are unremarkable. Gallbladder is contracted. No biliary ductal dilatation. Symmetric nephrograms. No focal renal lesion. No hydronephrosis. No hydroureter. Mild bladder wall th ickening may be seen with cystitis. Moderate colonic stool content is seen. No small or large bowel dilatation. No bowel obstruction. Jessy endix is normal. Relatively featureless appearance of a segment of sigmoid colon. Aorta is normal in caliber. Bones: No aggressive osseous lesion is seen. IMPRESSION: 1. Appendix is normal. 2. Mild bladder wall thickening may be seen with cystitis. 3. Relatively featureless appearance of a segment of sigmoid colon may be seen with chronic changes of prior inflammatory colitis. 4. Portal and hepatic hypoattenuation, fatty liver. Electronically signed by: Godfrey Piña MD (09/19/2021 7:12 PM) [id number]
[2021-09-19] MEDS ORDERED: MAGNESIUM HYDROXIDE 2,400 MG/30 ML ORAL.SUSP. PO ONE (20:15)
[2021-09-19] MEDS ORDERED: ONDANSETRON PF 4 MG/2 ML VIAL. IVP ONE (20:15)
[2021-09-19] MEDS ORDERED: AZITHROMYCIN 250 MG TABLET. PO ONE (20:15)
[2021-09-19] MEDS ORDERED: metroNIDAZOLE 500 MG TABLET PO ONE (20:15)
[2021-09-19] MEDS ORDERED: FLUC100T7 PO (20:24)
[2021-09-19] MEDS ORDERED: CEPH500C PO (20:24)
[2021-09-19] MEDS ORDERED: cefTRIAXone SODIUM 1 GM VIAL ONE (20:32)
[2021-09-19] MEDS ORDERED: IV NORMAL SALINE 50ML 50 ML ONE (20:32)
[2021-09-19 20:35] LABS: INFLUENZA A PATIENT NEGATIVE (NEGATIVE); INFLUENZA B PATIENT NEGATIVE (NEGATIVE)
[2021-09-19 21:02] VITALS: BP 112/79
== END 2021-09-19 21:02 | disposition home or self-care (01) ==
LOC: ER 16:01
DX: K57.90 Diverticulosis of intestine, part unspecified, without perforation or abscess without bleeding (principal); K59.00 Constipation, unspecified; A59.9 Trichomoniasis, unspecified; F17.210 Nicotine dependence, cigarettes, uncomplicated; Z20.822 Contact with and (suspected) exposure to COVID-19; Z98.51 Tubal ligation status
CPT/HCPCS: 36415; 74177; 76856; 80053; 81001; 81025; 83690; 85025; 86140; 87086; 87147; 87428; 87491; 87591; 96365; 96375; 99285; J0696; J1885; J2405; Q0111